=== PATIENT | female | born 1960 | race Caucasian/White ===

== ENCOUNTER → 2020-10-04 | Outpatient (CLI) | payer OTHER ==
[~2020-10-04] MED LIST: ASPIRIN CHEWABL81 MG PO; BRILINTA90 MG PO; GLYBURIDE-METF1 EAC1 PO; IMDUR ER TAB 3030 MG PO; LIPITOR TAB 2020 MG PO; PRINIVIL20 MG PO; TOPROL XL25 MG PO; VITAMIN D250000 UNIT PO
== END ==
LOC: HEART 5 16:46
DX: R06.02 Shortness of breath (principal); J98.4 Other disorders of lung
CPT/HCPCS: 94060; 94729